=== PATIENT | female | born 1945 | race Caucasian/White ===

== ENCOUNTER 2024-01-13 12:53 | Emergency (ER) | payer MEDICARE ==
[~2024-01-13] VITALS: Ht 160 cm; Wt 65.0 kg
[2024-01-13 13:08] VITALS: BP 145/78
[2024-01-13 13:16] VITALS: BP 104/51
[2024-01-13 13:30] VITALS: BP 120/61
[2024-01-13 13:45] VITALS: BP 108/61
[2024-01-13 13:46] LABS: URINE BILIRUBIN - DIPSTICK Negative (NEGATIVE); URINE BLOOD DIPSTICK Trace-lysed (NEGATIVE); URINE GLUCOSE - DIPSTICK Negative (NEGATIVE); URINE KETONE Negative (NEGATIVE); URINE PROTEIN - DIPSTICK Trace mg/dL (NEG-TRACE); URINE SPECIFIC GRAVITY 1.015; URINE UROBILINOGEN - DIPSTICK 0.2 E.U./dL (0.2)
[2024-01-13 13:48] LABS: URINE COLOR Yellow; URINE LEUK ESTERASE Large (NEGATIVE); URINE NITRITE - DIPSTICK Positive (Negative)
[2024-01-13 13:54] LABS: URINE BACTERIA MANY hpf; URINE RBC 0-2 RBC/hpf (0-5); URINE WBC >100 WBC/hpf (0-5)
[2024-01-13] MEDS ORDERED: SULFAMETHOXAZOLE W/TRIMETHOPRI 1 COMBO TAB PO ONE (13:55)
[2024-01-13] MEDS ORDERED: BACTRIM DS1 TAB PO (14:01)
[2024-01-13 14:06] VITALS: BP 108/61
== END 2024-01-13 14:13 | disposition home or self-care (01) ==
LOC: ED 12:53
PROVIDERS: Nurse Practitioner Family
DX: N39.0 Urinary tract infection, site not specified (principal); Z90.710 Acquired absence of both cervix and uterus; B96.20 Unspecified Escherichia coli [E. coli] as the cause of diseases classified elsewhere